=== PATIENT | male | born 2000 | race Caucasian/White ===

== ENCOUNTER 2021-03-11 00:44 | Emergency (ER) | payer OTHER, SELFPAY ==
[2021-03-11 00:46] VITALS: BP 163/71; PULSE 79; RESP 16; TEMP 36.6; O2SAT 97; BMI 23.7
--- NOTE | 2021-03-11 00:58 | RAD_ITS ---
STUDY: X-RAY - LEFT ANKLE REASON FOR EXAM: Male, 20 years old. Injury/Pain TECHNIQUE: 3 view(s) of the ankle. COMPARISON: None. FINDINGS: Normal visualized distal tibia and fibula. Normal medial and lateral malleoli. Normal tibiotalar articulation and ankle mortise. Normal visualized talus and calcaneus. The visualized subtalar, talonavicular, calcaneocuboid and tarsal articulations are normal. There is no demonstrated fracture. Mild soft tissue swelling surrounding the ankle. RAD/Ankle min 3 Views IMPRESSION: Mild soft tissue swelling as described, otherwise normal x-ray examination of the ankle. Electronically Signed: Naina Sanders MD at 1:37 EDT , Service support ,
--- NOTE | 2021-03-11 00:58 | ED.VIS.LOWEX ---
HPI History of Present Illness Chief Complaint: Lower Extremity Injury Informant: patient Onset/Context/Timing Onset: Today Narrative Narrative: Patient is a 20-year-old male with no past medical history presenting with left ankle injury. Patient was playing a soccer game earlier tonight when he tried to make a quick turn already had shifted all his weight into his left foot. His ankle rolled. He notes pain with kept playing. As he got home the pain worsens. Is on the outside of his ankle. He did not have any ibuprofen or ice at home so he came to the emergency room to be evaluated. He is a [employer] student. No other complaints or injuries. PFSH PFSH Home Medications ibuprofen 600 mg PO Q6H PRN PRN #20 tab 03/11/21 [Rx Last Taken Unknown] Allergy/AdvReac Type Severity Reaction Status Date / Time No Known Allergies Allergy Verified 03/11/21 00:48 Social History Smoking Status: Never smoker ROS ROS ED Constitutional Constitutional ED: Denies chills or fever(s) Eyes Eyes: Denies change in vision Cardiovascular Cardiovascular: Denies chest pain Respiratory/Chest Respiratory/Chest: Denies dyspnea Gastrointestinal Gastrointestinal: Denies nausea or vomiting Musculoskeletal Musculoskeletal: Reports other Details: Left ankle pain Integumentary Denies abscess or rash Neurologic Neurologic: Denies headache(s), paresthesias or weakness EXAM Physical Exam Const Vital Signs: 03/11/21 00:46 Temperature 98 F Temperature Source Temporal Pulse Rate 79 Respiratory Rate 16 Blood Pressure 163/71 H Blood Pressure Mean 101 Pulse Ox 97 Oxygen Delivery Method Room Air Positive well nourished and well developed General Appearance ED: well developed HEENT Reports head/scalp atraumatic and hearing grossly normal bilaterally normocephalic and atraumatic; Negative for Trevizo's sign or raccoon eyes Nose: no nasal discharge Mouth ED: Yes other Mouth: other Other Details: No Malocclusion Eyes PERRL Neck full ROM Chest Wall inspection of chest normal and palpation of chest normal Chest: Negative for crepitus Resp normal respiratory effort, no retractions and clear to auscultation bilaterally Cardio regular rate and regular rhythm Jugular Venous Distention: Negative for JVD Peripheral Pulses: pulses 2+ throughout GI non-tender and non-distended Palpation: soft; Negative for guarding or rebound tenderness present Back/Spine Cervical Spine: Negative for cervical spine tenderness Thoracic Spine / Upper Back: Negative for thoracic spinal tenderness Lumbar Spine / Lower Back: Negative for lumbar spinal tenderness Extremity normal to inspection and full ROM Extremity Narrative: No obvious deformity. Left: Normal Marks test. No fibular head tenderness. Normal range of motion of the left ankle. No bony tenderness. Tenderness palpation of the left lateral ankle just below the lateral malleolus. No tenderness of the foot appreciated. Neuro oriented x3, moves all extremities and no sensory deficits noted Sensorium / Orientation: alert Motor Exam: strength 5/5 throughout Psych mental status grossly normal Skin no wounds Trauma: Negative for abrasion MDM MDM MDM Narrative Medical decision making narrative: Patient evaluated for left ankle pain after he rolled it earlier tonight. Is given Motrin in the ER. Ice is applied to the ankle. X-ray obtained to rule out fracture. Likely this is a sprain. Will be treated symptomatically. He is neurovascularly intact. X-ray interpreted by myself as well as radiology. No acute fracture. Does have associated soft tissue swelling. Patient placed in Leo wrap. Discharged home. Radiography Diagnostic Testing: Radiology Impression Ankle X-Ray 03/11/21 00:58 IMPRESSION: Mild soft tissue swelling as described, otherwise normal x-ray examination of the ankle. Electronically Signed: Naina Sanders MD at 1:37 EDT , Service support , Discharge Plan Triage Chief Complaint: Lower Extremity Injury ED Provider: Maia Silver Dx/Rx/DC Orders Clinical Impression: Left ankle sprain Instructions: ED Ankle Sprain (Adult) Prescriptions: New ibuprofen 600 mg tablet 600 mg PO Q6H PRN PRN (Reason: fever or pain) Qty: 20 RF: 0 Primary Care Provider: Sindy Gomez,Out of Referrals: Juan Manuel Serna MD [STAFF PHYSICIAN] - [facility],Out of [Primary Care Provider] - Disposition Disposition: Home, self care
[2021-03-11] MEDS: Ibuprofen 600 MG Tablet PO (01:08)
== END 2021-03-11 01:56 | disposition home or self-care (01) ==
LOC: ED 01:45
PROVIDERS: Emergency Provider Emergency Medicine
DX: S93.402A Sprain of unspecified ligament of left ankle, initial encounter (principal); Y93.66 Activity, soccer; X50.1XXA Overexertion from prolonged static or awkward postures, initial encounter
CPT/HCPCS: 73610; 99283